=== PATIENT | female | born 1955 | race Caucasian/White ===

== ENCOUNTER 2018-03-29 06:54 | Emergency (ER) | payer OTHER ==
[~2018-03-29] VITALS: Ht 154.9 cm; Wt 61.2 kg
[2018-03-29] MEDS ORDERED: TRANDATE 200 M200 M1 PO (07:05)
[2018-03-29] MEDS ORDERED: LISINOPRIL20 MG PO (07:06)
[2018-03-29] MEDS ORDERED: HYDROCHLOROTH12.5 M1 PO (07:06)
[2018-03-29] MEDS ORDERED: PREMARIN30 GM TOP (07:07)
[2018-03-29 07:13] LABS: ABSOLUTE BASOPHILS 0.1 thou/uL (0.0-0.2); ABSOLUTE EOSINOPHILS 0.1 thou/uL (0.0-0.7); ABSOLUTE LYMPHOCYTES 0.6 thou/uL (0.8-5.3); ABSOLUTE MONOCYTES 0.3 thou/uL (0.0-1.2); ABSOLUTE NEUTROPHILS 4.6 thou/uL (1.6-8.1); BASOPHILS 1.1 %; EOSINOPHILS 2.1 %; HEMATOCRIT 39.1 % (37.0-47.0); HEMOGLOBIN 13.7 gm/dL (12.0-15.0); MCH 29.3 pg (26.0-34.0); MCV 83.7 fL (80.0-100.0); MONOCYTES 5.1 %; MPV 7.5 fl. (7.2-11.1); NUCLEATED RBCS 0 /100WBC; PLATELET COUNT* 291 thou/uL (150-400); POLYS 80.7 %; RBC 4.67 mil/uL (4.20-5.00); RDW-CV 13.1 % (10.5-14.5); WBC 5.7 thou/uL (4.0-11.0)
[2018-03-29 07:26] LABS: ANION GAP 10 mmol/L (7-16); BUN 10 mg/dL (7-18); CALCIUM 8.7 mg/dL (8.5-10.1); CHLORIDE 100 mmol/L (98-107); CO2 24 mmol/L (21-32); CREATININE 0.7 mg/dL (0.6-1.3); GLUCOSE 158 mg/dL (70-99); POTASSIUM 3.1 mmol/L (3.5-5.1); SODIUM 134 mmol/L (136-145)
[2018-03-29 07:33] LABS: ALBUMIN 3.6 g/dL (3.4-5.0); ALKALINE PHOSPHATASE 75 U/L (46-116); LIPASE 642 U/L (73-393); NT-PRO BRAIN NAT PEPTIDE 57 pg/mL (<300); SGOT 22 U/L (15-37); SGPT 39 U/L (30-65); TOTAL BILIRUBIN 0.6 mg/dL (<0.1-1.0); TOTAL PROTEIN 6.4 g/dL (6.4-8.2); TROPONIN-I LEVEL <0.06 ng/mL (<0.06)
[2018-03-29 08:11] LABS: URINE BILIRUBIN NEGATIVE (Negative); URINE BLOOD NEGATIVE (Negative); URINE CLARITY CLEAR; URINE COLOR YELLOW; URINE GLUCOSE-RANDOM NEGATIVE (Negative); URINE KETONES NEGATIVE (Negative); URINE LEUKOCYTES-REFLEX NEGATIVE (Negative); URINE NITRITE-REFLEX NEGATIVE (Negative); URINE PROTEIN NEGATIVE (Negative); URINE UROBILINOGEN 0.2 E.U./dl (0.2-1.0)
[2018-03-29 08:20] VITALS: BP 120/61
--- NOTE | 2018-03-29 13:58 | EKG ---
[place] [address] ELECTROCARDIOGRAM REPORT Name: NORAH KAUFFMAN [id number] Admission: 03/29/18 Attend Phys: Discharge: 03/29/18 Date of : 51 Report #: [id number] THIS REPORT FOR: //name// [facility] ED Test Date: 2018-03-29 Test Time: 07:02:59 Pat Name: NORAH KAUFFMAN Department: Room: Gender: F Professor Of Philosophy: Nora RAINES : 1955 Requested By: Anna Hatfield Order Number: [id number] MD: Venkata Dietz Measurements Intervals [place] Rate: 76 P: 39 GA: 152 QRS: 12 QRSD: 95 T: 30 QT: 378 QTc: 426 Interpretive Statements Sinus rhythm Ventricular trigeminy RSR' in V1 or V2, probably normal variant No previous ECG available for comparison Electronically Signed On 03-29-2018 13:57:50 CDT by Venkata Dietz [email or web address] <ELECTRONICALLY SIGNED> By: Venkata Dietz MD, [facility] 03/29/18 1357 D: [id number] Venkata Dietz MD, FACC /EPI
== END 2018-03-29 08:20 | disposition home or self-care (01) ==
LOC: M.ERS 06:54
PROVIDERS: Emergency Medicine
DX: R55 Syncope and collapse (principal); I10 Essential (primary) hypertension; Z88.2 Allergy status to sulfonamides